=== PATIENT | male | born 1975 | race Caucasian/White ===

== ENCOUNTER 2021-12-25 21:26 | Emergency (ER) | payer MEDICAID ==
[~2021-12-25] VITALS: Ht 175.3 cm; Wt 113.4 kg
[2021-12-25 21:33] VITALS: BP_SYST 180
--- NOTE | 2021-12-25 21:38 | NUR ---
PT BIB BLS TRANSPORT C/O LT HAND PAIN AND SWELLING, PER PT HE GOT STUCK BY USED NEEDLES AROUND 1999, NO OTHER COMPLAINS AT THIS TIME. NO S/S BLEEDING NOTED PMH;HTN,SLEEP APNEA PT AAOX4, NO SOB NOTED AND NAD. PENDING MD NGUYEN
[2021-12-25] MEDS ORDERED: DIPHTH,PERTUSS(ACELL),TET VAC 0.5 ML VIAL (Tdap) I.M. ONE (22:00)
--- NOTE | 2021-12-25 22:10 | NUR ---
AT BEDSIDE FOR MSE
[2021-12-25] MEDS ORDERED: LISI20TA30 PO (22:35)
--- NOTE | 2021-12-25 22:45 | NUR ---
Patient given written and verbal discharge instructions and verbalizes understanding. ER MD discussed with patient the results and treatment provided. Patient in stable condition. ID arm band removed. Rx of LISINOPRIL given. Patient educated on pain management and to follow up with PMD. Pain Scale 0. Opportunity for questions provided and answered. Medication side effect fact sheet provided.
[2021-12-25 22:46] VITALS: BP_SYST 160
== END 2021-12-25 22:46 | disposition home or self-care (01) ==
LOC: SED 21:26
DX: S67.22XA Crushing injury of left hand, initial encounter (principal); Z79.899 Other long term (current) drug therapy; W46.1XXA Contact with contaminated hypodermic needle, initial encounter; Y93.89 Activity, other specified; Y92.89 Other specified places as the place of occurrence of the external cause; Y99.8 Other external cause status
CPT/HCPCS: 90715; 99283